=== PATIENT | male | born 1970 | race Caucasian/White ===

== ENCOUNTER 2020-04-25 09:43 | Emergency (ER) | payer OTHER ==
[~2020-04-25] VITALS: Ht 167.6 cm; Wt 106.6 kg
[2020-04-25 09:50] VITALS: BP 169/86
[2020-04-25] MEDS ORDERED: METFORMIN HCL500 M3 PO (10:00)
[2020-04-25] MEDS ORDERED: CARVEDILOL25 MG PO (10:01)
[2020-04-25] MEDS ORDERED: BACTRIM DS TAB1 EACH PO (10:02)
[2020-04-25] MEDS ORDERED: ZOCOR20 MG PO (10:02)
[2020-04-25] MEDS ORDERED: PENICILLIN VK500 MG PO (10:03)
[2020-04-25] MEDS ORDERED: ZESTRIL40 MG PO (10:03)
== END 2020-04-25 10:31 | disposition home or self-care (01) ==
LOC: M.ERS 09:43
DX: S46.912A Strain of unspecified muscle, fascia and tendon at shoulder and upper arm level, left arm, initial encounter (principal); J34.0 Abscess, furuncle and carbuncle of nose; I10 Essential (primary) hypertension; Z87.442 Personal history of urinary calculi; Z79.899 Other long term (current) drug therapy; X58.XXXA Exposure to other specified factors, initial encounter; Y93.89 Activity, other specified; Y92.89 Other specified places as the place of occurrence of the external cause; Y99.8 Other external cause status

== ENCOUNTER 2021-03-07 20:16 | Inpatient (IN) | payer OTHER ==
[~2021-03-07] VITALS: Ht 167.6 cm; Wt 111.0 kg
--- NOTE | ~2021-03-07 | CON ---
[address] [address] CONSULTATION Name: JENA ZEE Room: [address] IN M.R.#: [id number] Admission: 03/07/21 Attend Phys: Ramila Driscoll MD Discharge: Date of : 74 Report #: [id number] THIS REPORT FOR: cc: Renetta Day MD, Lin W. MD Khosla, Parveen K. MD ~ DATE OF SERVICE: 03/08/2021 HISTORY OF PRESENT ILLNESS: This is a 50-year-old male patient who was evaluated by me for an episode of what looks like pretty profound weakness on the left side. It came spontaneously without any trauma and the patient's blood pressure was 252/129 on initial reading. His symptoms have completely resolved. He is a known hypertensive. He stopped taking his antihypertensive suddenly. He has not taken any antihypertensive at least for a week. He does have a blood pressure cuff, but he does not check his blood pressure. REVIEW OF SYSTEMS: A 14-point review of systems was positive for hypertension, kidney stone, diabetic and according to the record, genital herpetic . Rest of the 14-point review of system was unremarkable. PAST MEDICAL HISTORY: Negative for stroke. SOCIAL HISTORY: He says he does not smoke or drink any alcohol. PHYSICAL EXAMINATION: The patient is alert, responsive, able to follow simple and complex command. His speech, concentration, fund of knowledge is baseline. Cranial nerve examination 2-12 is unremarkable. There is no evidence of hemianopsia or facial weakness. He has a fairly symmetrical strength, sensation, reflexes and tone in all 4 extremities and appeared to have recovered from his deficit. There is no meningeal sign. His last blood pressure actually is 121/54 and pulse was 93 and he has no reoccurrence of his symptoms even with that low blood pressure. His cardiac examination is unremarkable. Respiratory examination is unremarkable. His pulses are difficult to feel. LABORATORY DATA: He did have a CT angiogram of the head, which was reviewed and he has already started to develop carotid stenosis on the right side. In fact, he is developing it on both sides, but is becoming prominent on the right side. IMPRESSION: This patient's clinical presentation is consistent with transient ischemic attack. Whether it occurred because of hypertensive encephalopathy or because of a right carotid stenosis is not clear. He is tolerating the lower blood pressure reasonably well and I suspect it may be because of hypertensive encephalopathy. I will suggest keeping his blood [place] [address] CONSULTATION Name: JENA ZEE PACO Room: [address] IN [facility].#: [id number] Admission: 03/07/21 Attend Phys: Ramila Driscoll MD Discharge: Date of : 74 Report #: [id number] lowering it over a period of time, but I did not do anything because he is tolerating this blood pressure pretty well, but I will suggest not dropping it any further and try to get it back to at least 140-150 systolic. This is because his blood pressure is already on and he has not shown any aggravation of his symptoms, I would like to do an MRI in this patient to see if he actually had a stroke. If he did, then I think he should be on Plavix and aspirin. Case can be made that he should be on aspirin and Plavix even now, but I will await the MRI. It looks like he did get an aspirin in the Emergency Room and I will suggest continuing that. He needs the management of his vascular risk factors including diabetes, hypertension, weight and diet. He really needs to work on that because his carotids are already started to show disease that of it was discussed with the patient and he is agreeable with the plan and I will talk to the nurses. Thank you very much for this referral. By: [id number] Bustamante MD /nt
[~2021-03-07 20:16] MED LIST: BACTRIM DS TAB1 EACH PO; CARVEDILOL25 MG PO; METFORMIN HCL500 M3 PO; PENICILLIN VK500 MG PO; ZESTRIL40 MG PO; ZOCOR20 MG PO
[2021-03-07 20:18] VITALS: BP 252/129
[2021-03-07 20:40] LABS: ABSOLUTE BASOPHILS 0.1 thou/uL (0.0-0.2); ABSOLUTE EOSINOPHILS 0.2 thou/uL (0.0-0.7); ABSOLUTE LYMPHOCYTES 2.3 thou/uL (0.8-5.3); ABSOLUTE MONOCYTES 0.5 thou/uL (0.0-1.2); ABSOLUTE NEUTROPHILS 5.5 thou/uL (1.6-8.1); BASOPHILS 0.9 %; EOSINOPHILS 2.2 %; HEMATOCRIT 41.3 % (42.0-52.0); HEMOGLOBIN 13.6 gm/dL (14.0-18.0); LYMPHOCYTES 26.7 %; MCH 25.7 pg (26.0-34.0); MCV 77.8 fL (80.0-100.0); MPV 8.9 fl. (7.2-11.1); NUCLEATED RBCS 0 /100WBC; PLATELET COUNT* 195 thou/uL (150-400); POLYS 64.2 %; RBC 5.31 mil/uL (4.50-6.00); RDW-CV 15.9 % (10.5-14.5); WBC 8.6 thou/uL (4.0-11.0)
[2021-03-07 20:48] LABS: CALCIUM 8.8 mg/dL (8.5-10.1); CREATININE 1.4 mg/dL (0.6-1.3); POTASSIUM 3.7 mmol/L (3.5-5.1)
[2021-03-07 20:51] LABS: PROTIME 10.8 Seconds (9.20-11.50)
[2021-03-07 20:59] LABS: ALBUMIN 3.9 g/dL (3.4-5.0); MAGNESIUM 1.9 mg/dL (1.8-2.4); TOTAL BILIRUBIN 0.5 mg/dL (<0.1-1.0)
[2021-03-07 22:00] LABS: URINE BILIRUBIN NEGATIVE (Negative); URINE BLOOD NEGATIVE (Negative); URINE CLARITY CLEAR; URINE COLOR YELLOW; URINE GLUCOSE-RANDOM 2+ (Negative); URINE KETONES NEGATIVE (Negative); URINE LEUKOCYTES-REFLEX NEGATIVE (Negative); URINE NITRITE-REFLEX NEGATIVE (Negative); URINE PROTEIN NEGATIVE (Negative); URINE UROBILINOGEN 0.2 E.U./dl (0.2-1.0)
[2021-03-07 23:44] VITALS: BP 203/89
[2021-03-07 23:51] VITALS: BP 171/73
[2021-03-08] VITALS (36 sets, daily range): BP systolic 121–202; BP diastolic 54–110
[2021-03-08] MEDS ORDERED: LISINOPRIL20 MG PO (01:12)
[2021-03-08] MEDS ORDERED: HYDROCHLOROTH12.5 M2 PO (01:13)
[2021-03-08] MEDS ORDERED: CARVEDILOL25 MG PO (01:13)
[2021-03-08] MEDS ORDERED: METFORMIN HCL500 M3 PO (01:14)
--- NOTE | 2021-03-08 11:13 | EKG ---
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[place] : 1970 Requested By: Miriam Barajas Order Number: [id number] MD: Lane Leger Measurements Intervals [place] Rate: 94 P: 43 RI: 137 QRS: 48 QRSD: 90 T: 185 QT: 381 QTc: 477 Interpretive Statements Sinus rhythm LVH with secondary repolarization abnormality Anterior ST elevation, probably due to LVH Borderline prolonged QT interval Compared to ECG 03/07/2021 20:19:12 no change Electronically Signed On 03-08-2021 11:13:[address]geer [email or web address] <ELECTRONICALLY SIGNED> By: Lane Leger MD, [facility] 03/08/[address]er MD, [facility] /EPI
--- NOTE | 2021-03-08 11:13 | EKG ---
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
--- NOTE | 2021-03-08 12:47 | CON ---
[facility] [address] [place] [address] CONSULTATION Name: JENA ZEE Room: [address] ADM IN M.R.#: [id number] Admission: 03/07/21 Attend Phys: Ramila Driscoll MD Discharge: Date of : 74 Report #: [id number] THIS REPORT FOR: cc: Renetta Day MD, Lin W. MD Blick, David R. MD [facility] ~ DATE OF SERVICE: 03/08/2021 CARDIOLOGY CONSULTATION HISTORY OF PRESENT ILLNESS: The patient is a 50-year-old white male who I was asked to see in the ICU today after he was noted to have elevated blood pressure. The patient states he has had high blood pressure since he was 40 years old. He has been on several medications. He has no previous history of heart disease. He apparently drove to [place] a week ago to help move his mom. Unfortunately, he did not take his blood pressure pills with him. When he returned from [place] yesterday morning, he was doing well and then went out to dinner last night with his family. He was at a restaurant and had problems with balance. He could not move his left leg and left arm. He sat down and felt weak, could not stand up. Paramedics were called. He was noted to have elevated blood pressure. He was brought here to [facility] by ambulance. Cardiology consultation requested. He denies a history of chest pain, shortness of breath, palpitations, syncope, or peripheral edema. He denies a history of headaches, sweating spells, heart murmur, kidney disease. PAST MEDICAL HISTORY: He has had kidney stones, tonsillectomy, carpal tunnel surgery, hypertension, hyperlipidemia, glucose intolerance. MEDICATIONS: His previous medications, which he was not taking the past week, included carvedilol, hydrochlorothiazide, lisinopril, metformin. ALLERGIES: He had no known drug allergies. FAMILY HISTORY: His brother had a stroke. Father of heart attack. 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 He and his and kids live in [place]. Quit smoking 20 years ago. No longer uses alcohol. REVIEW OF SYSTEMS: He apparently does snore at night. He had a sleep study that was equivocal. He has asthma. No history of liver disease, cancer, psychiatric illness, chronic skin condition. PHYSICAL EXAMINATION: GENERAL: Revealed a middle-aged male, lying in bed. He was 5 feet 6, weight [facility] [address] [place] [address] CONSULTATION Name: JENA ZEE Room: [address]#: [id number] Admission: 03/07/21 Attend Phys: Ramila Driscoll MD Discharge: Date of : 74 Report #: [id number] 250 pounds. VITAL SIGNS: He had a blood pressure that was initially 250/120, pulse was 100. He was afebrile. HEENT: He was anicteric. Conjunctivae pink. Mucous membranes are moist. NECK: Veins nondistended. No carotid bruits. Neck supple. CHEST: Clear to auscultation. CARDIOVASCULAR: Regular rate and rhythm. ABDOMEN: Obese, soft. EXTREMITIES: Had no pitting edema. Dorsalis pedis pulse 1+ bilaterally. SKIN: Cool and dry. NEUROLOGIC: Nonfocal. His ECG showed sinus rhythm, left ventricular hypertrophy, repolarization changes. His workup last night, sodium 139, BUN 21, creatinine 1.4, glucose is 265. Troponin was 0.12. BNP 558. White blood cell count 8.6, hemoglobin 13.6. COVID antigen stat test was negative. Urinalysis negative for protein. Workup in the Emergency Room: The patient had a CT scan of the head without contrast that showed no acute abnormality. His chest x-ray showed normal heart size, clear lung chang. IMPRESSION AND RECOMMENDATIONS: 1. Essential hypertension. Recommend resuming medications. 2. Obesity. 3. Possible sleep apnea. 4. Glucose intolerance. 5. Hyperlipidemia. 6. Transient ischemic attack. Consider carotid ultrasound. 7. History of kidney stones. <ELECTRONICALLY SIGNED> By: Lane Leger MD, FACC 03/08/21 1247 0924 [id number] Leger MD, FACC /nt
--- NOTE | 2021-03-08 14:35 | 2DMMODE ---
[place] [address] 2 D/M-MODE ECHOCARDIOGRAM Name: JENA ZEE Room: [address] IN .R.#: [id number] Admission: 03/07/21 Attend Phys: Ramila Driscoll MD Discharge: Date of : 74 Date of Service: 03/08/21 1435 Report #: [id number] THIS REPORT FOR: cc: Renetta Day MD, Lin W. MD Blick, David R. MD [facility] ~ APPROVED REPORT Study performed: 03/08/2021 11:37:43 EXAM: Comprehensive 2D, Doppler, and color-flow Echocardiogram Patient Location: In-Patient Room #: [facility] Status: routine BSA: 2.18 HR: 82 bpm BP: 183/90 mmHg Rhythm: NSR Other Information Study Quality: Excellent Indications CVA/TIA Echo Enhancing Agent Indication: Rule out Shunt Agent(s) / Amount(s) Used: Agitated Saline 10 cc 2D Dimensions IVSd: 14.48 (7-11mm) LVOT Diam: 19.43 (18-24mm) LVDd: 49.27 mm PWd: 10.61 (7-11mm) Ascending Ao: 35.82 (22-36mm) LVDs: 27.70 (25-40mm) Aortic Root: 35.40 mm Volumes Left Atrial Volume (Systole) LA ESV Index: 34.70 mL/m2 Aortic Valve AoV Peak Jase.: 1.69 m/s AO Peak Gr.: 11.38 mmHg LVOT Max P.22 mmHg AO Mean Gr.: 6.37 mmHg LVOT Mean P.68 [place] [address] 2 D/M-MODE ECHOCARDIOGRAM Name: JENA ZEE Room: [address] IN M.R.#: [id number] Admission: 03/07/21 Attend Phys: Ramila Driscoll MD Discharge: Date of : 74 Date of Service: 03/08/21 1435 Report #: [id number] LVOT Max V: 1.75 m/s AO V2 VTI: 26.06 cm LVOT Mean V: 1.08 m/s KINZA (VTI): 3.15 cm2 LVOT V1 VTI: 27.67 cm Mitral Valve E/A Ratio: 1.37 MV Decel. Time: 186.47 ms MV E Max Jase.: 0.97 m/s MV PHT: 54.08 ms MVA (PHT): 4.07 cm2 TDI E/Lateral E': 13.86 E/Medial E': 13.86 Medial E' Jase.: 0.07 m/s Lateral E' Jase.: 0.07 m/s Pulmonary Valve PV Peak Jase.: 1.19 m/s PV Peak Gr.: 5.68 mmHg Tricuspid Valve RAP Estimate: 5.00 mmHg TR Peak Gr.: 29.05 mmHg RVSP: 34.00 mmHg PA Pressure: 34.00 mmHg Left Ventricle The left ventricle is normal size. There is normal LV segmental wall motion. Moderate concentric left ventricular hypertrophy. Left ventricular systolic function is normal. The left ventricular ejection fraction is within the normal range. LVEF is 60-65%. The left ventricular diastolic function is normal. Right Ventricle The right ventricle is normal size. The right ventricular systolic function is normal. Atria Left atrium is mildly dilated. The interatrial septum is intact with no evidence for an atrial septal defect. The right atrium size is normal. Aortic Valve The aortic valve is normal in structure. No aortic regurgitation is present. There is no aortic valvular stenosis. Mitral Valve The mitral valve is normal in structure. [place] [address] 2 D/M-MODE ECHOCARDIOGRAM Name: JENA ZEE PACO Room: [address] IN .R.#: [id number] Admission: 03/07/21 Attend Phys: Ramila Driscoll MD Discharge: Date of : 74 Date of Service: 03/08/21 1435 Report #: [id number] No evidence of mitral valve stenosis. Tricuspid Valve The tricuspid valve is normal in structure. Trace tricuspid regurgitation. estimated pa pressure 45 mm Hg Pulmonic Valve The pulmonary valve is normal in structure. Trace pulmonic regurgitation. Great Vessels The aortic root is normal in size. IVC is normal in size and collapses >50% with inspiration. Pericardium There is no pericardial effusion. <Conclusion> Moderate concentric left ventricular hypertrophy. LVEF is 60-65%. Mild mitral regurgitation. The interatrial septum is intact with no evidence for an atrial septal defect. <ELECTRONICALLY SIGNED> By: Lane Leger MD, FACC 03/08/21 [address] Leg[address] MD, FACC /INF
[2021-03-09] VITALS (7 sets, daily range): BP systolic 144–198; BP diastolic 69–112
[2021-03-09 05:04] LABS: CHOLESTEROL 231 mg/dL (<200); HDL CHOLESTEROL 37 mg/dL (>40); LDL CHOLESTEROL 162 mg/dL (<100); TC:HDL 6.2 Ratio (Not establshd); TRIGLYCERIDE 162 mg/dL (<150); VLDL 32 mg/dL (<40)
[2021-03-09 05:12] LABS: SERUM ASSESSMENT CLEAR
[2021-03-09 11:20] LABS: HEMOGLOBIN 13.3 gm/dL (14.0-18.0); MCH 25.4 pg (26.0-34.0); MCHC 32.3 g/dL (28.0-37.0); MCV 78.6 fL (80.0-100.0); MPV 9.3 fl. (7.2-11.1); RBC 5.21 mil/uL (4.50-6.00); RDW-CV 15.1 % (10.5-14.5); WBC 8.7 thou/uL (4.0-11.0)
[2021-03-09 11:27] LABS: CALCIUM 9.1 mg/dL (8.5-10.1); POTASSIUM 3.7 mmol/L (3.5-5.1)
[2021-03-09 23:06] LABS: GLYCOHEMOGLOBIN (HGB A1C) 6.9 % (4.8-5.6)
[2021-03-10] VITALS: BP 146/72
[2021-03-10 04:00] VITALS: BP 155/59
[2021-03-10 08:00] VITALS: BP 186/118
[2021-03-10] MEDS ORDERED: PLAVIX 75 MG TA75 M1 PO (08:15)
[2021-03-10] MEDS ORDERED: LIPITOR 40 MG T40 M1 PO (08:15)
[2021-03-10 08:46] LABS: HEMATOCRIT 43.7 % (42.0-52.0); HEMOGLOBIN 14.2 gm/dL (14.0-18.0); MCH 25.3 pg (26.0-34.0); MCHC 32.5 g/dL (28.0-37.0); MCV 77.7 fL (80.0-100.0); RBC 5.62 mil/uL (4.50-6.00); WBC 8.6 thou/uL (4.0-11.0)
[2021-03-10 08:50] LABS: CALCIUM 8.3 mg/dL (8.5-10.1); POTASSIUM 3.8 mmol/L (3.5-5.1)
[2021-03-10 11:29] VITALS: BP 186/118
[2021-03-10 14:21] VITALS: BP 186/118
== END 2021-03-10 14:40 | disposition home or self-care (01) | DRG 65 ==
LOC: M.ERS 20:16 → M.ICU 21:57 → M.2W 21:57 → M.TBA-ER 21:57 → M.ICU 23:45 → M.2W 03-08 18:15
PROVIDERS: Emergency Medicine; Internal Medicine; Internal Medicine Cardiovascular Disease; Psychiatry & Neurology Neuromuscular Medicine; ADMIT Family Medicine; ATTEND Family Medicine
DX: I63.9 Cerebral infarction, unspecified (principal); I16.1 Hypertensive emergency; I67.4 Hypertensive encephalopathy; E78.5 Hyperlipidemia, unspecified; E66.9 Obesity, unspecified; R73.03 Prediabetes; E74.39 Other disorders of intestinal carbohydrate absorption; E78.00 Pure hypercholesterolemia, unspecified; I65.21 Occlusion and stenosis of right carotid artery; Z20.822 Contact with and (suspected) exposure to COVID-19; N18.30 Chronic kidney disease, stage 3 unspecified; I12.9 Hypertensive chronic kidney disease with stage 1 through stage 4 chronic kidney disease, or unspecified chronic kidney disease; Z87.442 Personal history of urinary calculi; Z87.891 Personal history of nicotine dependence; Z82.3 Family history of stroke; Z68.39 Body mass index [BMI] 39.0-39.9, adult